=== PATIENT | female | born 1955 | race Caucasian/White ===

== ENCOUNTER 2020-07-20 14:59 | Emergency (ER) | payer MEDICARE ==
[~2020-07-20] VITALS: Ht 157.5 cm; Wt 60.0 kg
--- NOTE | 2020-07-20 16:46 | RAD ---
PA CHEST AND RIGHT RIB SERIES Clinical Indication: Reason: R POSTERIOR RIB PAIN AFTER FALL Comparison: None. Findings: The cardiomediastinal silhouette is normal. Pulmonary vasculature is normal. Thin linear opacities in the right midlung and the bilateral lung bases are probably discoid atelectasis. No pleural effusion or pneumothorax is seen. Cholecystectomy clips. Disc space narrowing and endplate spurring of L3/L4. There is no acute displaced rib fracture. A nondisplaced or subtle rib fracture could be obscured. IMPRESSION: 1. Mild right midlung and bibasilar discoid atelectasis. 2. No acute displaced rib fracture. Electronically signed by: Jamie Alamo MD (07/20/2020 3:42 PM) [id number]
--- NOTE | 2020-07-20 16:46 | RAD ---
Exam: CT head and cervical spine INDICATION: Scalp laceration, neck pain after fall TECHNIQUE: Sequential axial images through the head and cervical spine were obtained without the administration of IV contrast. Comparisons: None FINDINGS: Head: No focal parenchymal lesion or hemorrhage is identified. There is no midline shift or sulcal effacement. Mild patchy hypodensity in the periventricular white matter. No acute vascular territory infarction is identified. Bolanos-white distinction is preserved. The ventricular system is within normal limits without compression hydrocephalus. The basal cisterns are well maintained. There is a extra cranial soft tissue scalp contusion overlying the left occipital region. The visualized portions of the paranasal sinuses and mastoid air cells are well-pneumatized. No acute fractures. Cervical spine: Vertebral body heights and alignment are well-maintained. Fracture to the cervical spine is not identified. No significant spondylotic change in cervical spine. Visualized paraspinal soft tissues are unremarkable. IMPRESSION: 1. Extracranial soft tissue tissue scalp contusion overlying the left occipital region without underlying osseous or intracranial abnormality. 2. Negative CT C-spine for acute traumatic injury. Exposure: One or more of the following in the visualized dose reduction techniques were utilized for this examination: 1. Automated exposure control 2. Adjustment of the MA and/or KV according to patient size Use of iterative of reconstructive technique Electronically signed by: Alexander Tavarez MD (07/20/2020 4:38 PM) [facility]
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
[2020-07-20] MEDS ORDERED: DIAZ5TAB4 PO (18:54)
[2020-07-20] MEDS ORDERED: diazePAM 5 MG TABLET PO ONE (19:00)
[2020-07-20 19:57] VITALS: BP 98/65
== END 2020-07-20 20:09 | disposition home or self-care (01) ==
LOC: ER 14:59
DX: S16.1XXA Strain of muscle, fascia and tendon at neck level, initial encounter (principal); S20.211A Contusion of right front wall of thorax, initial encounter; S00.03XA Contusion of scalp, initial encounter; G89.29 Other chronic pain; G43.909 Migraine, unspecified, not intractable, without status migrainosus; Z88.1 Allergy status to other antibiotic agents; Z88.5 Allergy status to narcotic agent; Z88.8 Allergy status to other drugs, medicaments and biological substances; W10.8XXA Fall (on) (from) other stairs and steps, initial encounter; Y93.89 Activity, other specified; Y92.098 Other place in other non-institutional residence as the place of occurrence of the external cause; Y99.8 Other external cause status
CPT/HCPCS: 70450; 71101; 72125; 99285

== ENCOUNTER 2020-11-26 10:33 | Observation (INO) | payer MEDICARE, MEDICAID ==
[~2020-11-26] VITALS: Ht 157.5 cm; Wt 64.0 kg
[~2020-11-26 10:33] MED LIST: DIAZ5TAB4 PO
[2020-11-26 10:48] VITALS: BP 117/60
[2020-11-26] MEDS: ONDANSETRON PF 4 MG/2 ML VIAL. IVP PRN (13:50)
[2020-11-26] MEDS: fentaNYL PF VIAL 100 MCG/2 ML VIAL IVP PRN ×3 (13:51→19:55)
[2020-11-26] MEDS: IV NORMAL SALINE 1000ML BAG 1,000 ML IV SCH (13:56)
[2020-11-26] MEDS ORDERED: BUTALB/APAP/CAFEIN 50/325/40MG TABLET. PO PRN (14:15)
--- NOTE | 2020-11-26 14:17 | PDOC2 ---
GI CONSULT Date of Service: DATE: 11/26/20 TIME: 14:08 Reason For Consult: abd pain HPI: HPI: 65 y/o female who has seen Dr. Paredes directly admitted this afternoon by Dr. Nichols. We are asked to see re: abd pain. She reports ~6 months of epigastric/upper abd pain most noticeable after eating dinner. Sometimes stabbing, sometimes aching. Helps to take Tums before and after dinner. She has vomiting associated w/ migraines but not with this pain. Feels bloated after eating - "I look like I'm ." Denies reflux/heartburn, dysphagia, hematemesis, diarrhea, constipation, hematochezia, and melena. Has lost 8 pounds. Mentions she likes to walk her dog. Additional h/o frequent falls - recalls episode in 07/2020 when she fell down 14 stairs and was evaluated here for a concussion. She got better but reports worsening of symptoms recently. "I walk like I'm drunk and my speech is slurred." Describes weakness, has to stay upstairs in her room. Neurology asked to see as well; Dr. Carlos is present for part of interview. EGD for epigastric pain on 10/17/20 @ [facility] showed LA Grade A esophagitis, atrophic gastritis, and normal duodenum. At that time. Following this, she reports normal B12 level and also had GES @ [facility]. GES and esophageal biopsy results are unavailable. At one point SBS considered. Colonoscopy for screening on 09/05/20 @ [facility] showed non-bleeding internal hemorrhoids. No biopsies. S/p cholecystectomy in the 1980s for stones. H/o Hep C - seems w/ attempted treatment w/ Dr. Hampton in the past ("chemo") - she stopped due to adverse effects (weight loss, weakness). She describes Hep C "coming out" several times during her lifetime - recently "came out" while she was having GES and "they had to wake me up." Not sure when she has had liver imaging but says Dr. Nichols checks routine labs. No pancreas or PUD history. Chronic pain (neck, migraines) on Percocet and mentions Vistaril works best for nausea when she has it. PMH: PMH: neck pain, migraines, Hep C cholecystectomy, appendectomy, bilateral knee surgeries, sinus surgery, hysterectomy, tonsillectomy, right CTR FH: Family History: CAD, DM Social History: Smoke: <1 pack per day ALCOHOL: none Drugs: None ROS: GEN: Denies fevers, chills, sweats HEENT: Denies blurred vision, sore throat CV: Denies chest pain RESP: Denies shortness of air, cough GI: Per HPI : Denies hematuria, dysuria ENDO: +weight loss NEURO: +slurred speech, unsteadiness MSK: +weakness SKIN: Denies jaundice, pruritus Vitals: Vitals: Vital Signs Date Time Temp Pulse Resp B/P (MAP) Pulse Ox O2 Delivery O2 Flow Rate FiO2 11/26/20 13:51 Room Air Labs: Labs: none for review Allergies: Coded Allergies: erythromycin base (Verified Allergy, Severe, Shortness of Air, 07/20/20) butorphanol (Verified Allergy, Intermediate, Rash, 07/20/20) morphine (Verified Allergy, Intermediate, Rash, 07/20/20) orphenadrine (Verified Allergy, Intermediate, Rash, 07/20/20) Medications: Current Medications Medications (Trade) Dose Ordered Sig/Mack Route PRN Reason Start Time Stop Time Status Last Admin Dose Admin Ondansetron HCl (Zofran) 4 mg PRN Q4HRS PRN IVP NAUSEA/VOMITING 11/26/20 12:15 11/26/20 13:50 Sodium Chloride 1,000 ml @ 75 mls/hr [id number] IV 11/26/20 12:15 11/26/20 13:56 Fentanyl Citrate (Fentanyl 2ml Vial) 25 mcg PRN Q2HR PRN IVP PAIN 11/26/20 13:00 11/26/20 13:51 Imaging: Imaging: no GI imaging for review PE: GEN: NAD HEENT: Atraumatic, PERRL LUNGS: CTAB HEART: RRR ABD: NABS, S/ND, currently non-tender EXTREMITY: No edema SKIN: No rashes, no jaundice NEURO/PSYCH: A & O 3 - she does speak quite slowly, speech is occasionally difficult to understand A/P: A/P: Upper abd pain, bloating - Tums helps Weakness, falls, slurred speech GERD - mild per recent EGD CRC screen - UTD S/p cholecystectomy H/o Hep C Chronic pain, migraines w/ recurrent vomiting -- D/w Dr. Paredes - await labs, add ammonia, observe. Will attempt to review EGD path and GES report. Try PPI, consider abdominal imaging. LELAND BALLESTEROS Nov 26, 2020 14:17
[2020-11-26] MEDS ORDERED: GABA800T5 PO (14:25)
[2020-11-26] MEDS ORDERED: VALIUM10 MG PO (14:25)
[2020-11-26] MEDS ORDERED: BUTA1TAB23 PO (14:25)
[2020-11-26] MEDS ORDERED: HYDR25TA PO (14:25)
[2020-11-26] MEDS ORDERED: OXYC1TAB22 PO (14:25)
[2020-11-26 15:00] VITALS: BP 98/41
[2020-11-26 15:00] LABS: BASO # 0.1 x10^3/uL (0.0-0.2); BASO % 1 % (0-3); EOS # 0.2 x10^3/uL (0.0-0.7); EOS % 2 % (0-3); HEMATOCRIT 39.1 % (36.0-47.0); HEMOGLOBIN 13.3 g/dL (12.0-15.5); LYMPH # 2.1 x10^3/uL (1.0-4.8); LYMPH % 29 % (24-48); MEAN CORPUSCULAR HEMOGLOBIN 32 pg (25-35); MEAN CORPUSCULAR HGB CONC 34 g/dL (31-37); MEAN CORPUSCULAR VOLUME 96 fL (79-100); MONO # 0.5 x10^3/uL (0.0-1.1); MONO % 7 % (0-9); NEUT # 4.5 x10^3/uL (1.8-7.7); NEUT % 60 % (31-73); PLATELET COUNT 358 x10^3/uL (140-400); RED CELL DISTRIBUTION WIDTH 13.1 % (11.5-14.5); WHITE BLOOD COUNT 7.4 x10^3/uL (4.0-11.0)
[2020-11-26] MEDS ORDERED: CALCIUM CARBONATE 500 MG TAB.CHEW PO PRN (15:00)
[2020-11-26 15:35] LABS: ALBUMIN 3.3 g/dL (3.4-5.0); ALBUMIN/GLOBULIN RATIO 0.9 (1.0-1.7); CALCIUM 8.9 mg/dL (8.5-10.1); CREATININE 0.7 mg/dL (0.6-1.0); GFR 84.5; POTASSIUM 3.9 mmol/L (3.5-5.1); TOTAL BILIRUBIN 0.2 mg/dL (0.2-1.0)
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
[2020-11-26] MEDS: PANTOPRAZOLE 40 MG TABLET.DR. PO SCH (16:44)
[2020-11-26] MEDS: GABAPENTIN 400 MG CAPSULE. PO SCH ×2 (16:44→19:54)
[2020-11-26] MEDS: hydrOXYzine 25 MG TABLET PO SCH ×2 (16:44→20:02)
[2020-11-26] MEDS: CITALOPRAM 20 MG TABLET. PO SCH (16:44)
[2020-11-26] MEDS: diazePAM 5 MG TABLET PO SCH ×2 (16:44→19:54)
[2020-11-26 19:00] VITALS: BP 103/43
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
[2020-11-26] MEDS: oxyCODONE/APAP 10/325 1 TAB TABLET PO PRN (22:27)
[2020-11-26 23:00] VITALS: BP 99/50
[2020-11-27] MEDS: fentaNYL PF VIAL 100 MCG/2 ML VIAL IVP PRN ×3 (00:51→06:34)
[2020-11-27 03:00] VITALS: BP 95/39
[2020-11-27 07:00] VITALS: BP 90/45
[2020-11-27 08:32] LABS: BILIRUBIN,URINE NEGATIVE (NEG); CLARITY,URINE CLEAR; COLOR,URINE YELLOW; NITRITE,URINE NEGATIVE (NEG); PH,URINE 5.5 (<5.0-8.0); PROTEIN,URINE NEGATIVE (NEG-TRACE); UROBILINOGEN,URINE 0.2 mg/dL (0.2 mg/dL)
[2020-11-27] MEDS: diazePAM 5 MG TABLET PO SCH ×2 (08:35→12:56)
[2020-11-27] MEDS: CITALOPRAM 20 MG TABLET. PO SCH (08:35)
[2020-11-27] MEDS: GABAPENTIN 400 MG CAPSULE. PO SCH ×2 (08:35→12:56)
[2020-11-27] MEDS: ONDANSETRON PF 4 MG/2 ML VIAL. IVP PRN (08:35)
[2020-11-27] MEDS: PANTOPRAZOLE 40 MG TABLET.DR. PO SCH (08:35)
[2020-11-27] MEDS: IV NORMAL SALINE 1000ML BAG 1,000 ML IV SCH (08:40)
--- NOTE | 2020-11-27 08:48 | PDOC ---
PROGRESS NOTES Date of Service DATE: 11/27/20 TIME: 08:46 Subjective Subjective She feels better. Objective Objective Vital Signs Date Time Temp Pulse Resp B/P (MAP) Pulse Ox O2 Delivery O2 Flow Rate FiO2 11/27/20 07:00 97.9 63 17 90/45 (60) 91 Room Air 97.9 Intake and Output 11/27/20 07:00 Intake Total 470 ml Balance 470 ml Intake Oral 470 ml # Voids 3 # Bowel Movements 1 Physical Exam Physical Exam She is alert,sitting in bed with head end propped up and she had ochoa free and full cervical spine ROM and she is independent with her mobility and self care. Plan Plan of Senior Care with out patient follow up when medically stable. Comment Review of Relevant I have reviewed the following items christiano (where applicable) has been applied. Labs Laboratory Tests Test 11/26/20 14:25 11/26/20 17:55 White Blood Count 7.4 x10^3/uL (4.0-11.0) Red Blood Count 4.10 x10^6/uL (3.50-5.40) Hemoglobin 13.3 g/dL (12.0-15.5) Hematocrit 39.1 % (36.0-47.0) Mean Corpuscular Volume 96 fL (79-100) Mean Corpuscular Hemoglobin 32 pg (25-35) Mean Corpuscular Hemoglobin Concent 34 g/dL (31-37) Red Cell Distribution Width 13.1 % (11.5-14.5) Platelet Count 358 x10^3/uL (140-400) Neutrophils (%) (Auto) 60 % (31-73) Lymphocytes (%) (Auto) 29 % (24-48) Monocytes (%) (Auto) 7 % (0-9) Eosinophils (%) (Auto) 2 % (0-3) Basophils (%) (Auto) 1 % (0-3) Neutrophils # (Auto) 4.5 x10^3/uL (1.8-7.7) Lymphocytes # (Auto) 2.1 x10^3/uL (1.0-4.8) Monocytes # (Auto) 0.5 x10^3/uL (0.0-1.1) Eosinophils # (Auto) 0.2 x10^3/uL (0.0-0.7) Basophils # (Auto) 0.1 x10^3/uL (0.0-0.2) Sodium Level 141 mmol/L (136-145) Potassium Level 3.9 mmol/L (3.5-5.1) Chloride Level 107 mmol/L (98-107) Carbon Dioxide Level 28 mmol/L (21-32) Anion Gap 6 (6-14) Blood Urea Nitrogen 10 mg/dL (7-20) Creatinine 0.7 mg/dL (0.6-1.0) Estimated GFR (Cockcroft-Gault) 84.5 BUN/Creatinine Ratio 14 (6-20) Glucose Level 100 mg/dL (70-99) Calcium Level 8.9 mg/dL (8.5-10.1) Total Bilirubin 0.2 mg/dL (0.2-1.0) Aspartate Amino Transf (AST/SGOT) 16 U/L (15-37) Alanine Aminotransferase (ALT/SGPT) 18 U/L (14-59) Alkaline Phosphatase 77 U/L (46-116) Total Protein 7.0 g/dL (6.4-8.2) Albumin 3.3 g/dL (3.4-5.0) Albumin/Globulin Ratio 0.9 (1.0-1.7) Amylase Level 53 U/L (25-115) Lipase 87 U/L (73-393) Hepatitis C IgG Antibody Reactive (Nonreactive) Ammonia 13 mcmol/L (11-34) Laboratory Tests Test 11/26/20 14:25 11/26/20 17:55 White Blood Count 7.4 x10^3/uL (4.0-11.0) Red Blood Count 4.10 x10^6/uL (3.50-5.40) Hemoglobin 13.3 g/dL (12.0-15.5) Hematocrit 39.1 % (36.0-47.0) Mean Corpuscular Volume 96 fL (79-100) Mean Corpuscular Hemoglobin 32 pg (25-35) Mean Corpuscular Hemoglobin Concent 34 g/dL (31-37) Red Cell Distribution Width 13.1 % (11.5-14.5) Platelet Count 358 x10^3/uL (140-400) Neutrophils (%) (Auto) 60 % (31-73) Lymphocytes (%) (Auto) 29 % (24-48) Monocytes (%) (Auto) 7 % (0-9) Eosinophils (%) (Auto) 2 % (0-3) Basophils (%) (Auto) 1 % (0-3) Neutrophils # (Auto) 4.5 x10^3/uL (1.8-7.7) Lymphocytes # (Auto) 2.1 x10^3/uL (1.0-4.8) Monocytes # (Auto) 0.5 x10^3/uL (0.0-1.1) Eosinophils # (Auto) 0.2 x10^3/uL (0.0-0.7) Basophils # (Auto) 0.1 x10^3/uL (0.0-0.2) Sodium Level 141 mmol/L (136-145) Potassium Level 3.9 mmol/L (3.5-5.1) Chloride Level 107 mmol/L (98-107) Carbon Dioxide Level 28 mmol/L (21-32) Anion Gap 6 (6-14) Blood Urea Nitrogen 10 mg/dL (7-20) Creatinine 0.7 mg/dL (0.6-1.0) Estimated GFR (Cockcroft-Gault) 84.5 BUN/Creatinine Ratio 14 (6-20) Glucose Level 100 mg/dL (70-99) Calcium Level 8.9 mg/dL (8.5-10.1) Total Bilirubin 0.2 mg/dL (0.2-1.0) Aspartate Amino Transf (AST/SGOT) 16 U/L (15-37) Alanine Aminotransferase (ALT/SGPT) 18 U/L (14-59) Alkaline Phosphatase 77 U/L (46-116) Total Protein 7.0 g/dL (6.4-8.2) Albumin 3.3 g/dL (3.4-5.0) Albumin/Globulin Ratio 0.9 (1.0-1.7) Amylase Level 53 U/L (25-115) Lipase 87 U/L (73-393) Hepatitis C IgG Antibody Reactive (Nonreactive) Ammonia 13 mcmol/L (11-34) Medications Current Medications Ondansetron HCl (Zofran) 4 mg PRN Q4HRS PRN IVP NAUSEA/VOMITING Last adminis tered on 11/26/20at 13:50; Start 11/26/20 at 12:15 Sodium Chloride 1,000 ml @ 75 mls/hr [id number] IV Last administered on 11/26/20at 13:56; Start 11/26/20 at 12:15 Fentanyl Citrate (Fentanyl 2ml Vial) 25 mcg PRN Q2HR PRN IVP PAIN Last administered on 11/27/20at 06:34; Start 11/26/20 at 13:00 Acetaminophen/ Butalbital/ Caffeine (Fioricet) 1 tab TID PRN PRN PO HEADACHE; Start 11/26/20 at 14:15 Hydroxyzine HCl (Atarax) 50 mg QID PO Last administered on 11/26/20at 20:02; Start 11/26/20 at 17:00 Oxycodone/ Acetaminophen (Percocet 10/325) 1 tab PRN TID PRN PO PAIN Last administered on 11/26/20at 22:27; Start 11/26/20 at 14:15 Diazepam (Valium) 10 mg QID PO Last administered on 11/26/20at 19:54; Start 11/26/20 at 17:00 Gabapentin (Neurontin) 800 mg QID PO Last administered on 11/26/20at 19:54; Start 11/26/20 at 17:00 Pantoprazole Sodium (Protonix) 40 mg DAILYAC PO Last administered on 11/26/20at 16:44; Start 11/26/20 at 16:30 Calcium Carbonate/ Glycine (Tums) 500 mg PRN AFTMEALHC PRN PO INDIGESTION; Start 11/26/20 at 15:00 Citalopram Hydrobromide (CeleXA) 20 mg DAILY PO Last administered on 11/26/20at 16:44; Start 11/26/20 at 17:00 Active Scripts Active Diazepam 5 Mg Tablet 5 Mg PO TID PRN 3 Days Reported Gabapentin 800 Mg Tablet 800 Mg PO QID [id number] 50-325-40 (Butalb/Acetaminophen/Caffeine) 1 Each Tablet 1 Each PO TID PRN PRN Hydroxyzine Hcl 25 Mg Tablet 50 Mg PO QID Percocet 10-325 Mg Tablet (Oxycodone/Acetaminophen) 1 Each Tablet 1 Tab PO PRN TID PRN MDD 3 Tablet(s) 5 Days Valium (Diazepam) 10 Mg Tablet 10 Mg PO QID Vitals/I & O Vital Sign - Last 24 Hours 11/26/20 11/26/20 11/26/20 11/26/20 10:48 13:51 14:21 15:00 Temp 97.7 97.8 97.7 97.8 Pulse 59 57 Resp 18 18 B/P (MAP) 117/60 (79) 98/41 (60) Pulse Ox 95 91 O2 Delivery Room Air Room Air Room Air Room Air 11/26/20 11/26/20 11/26/20 11/26/20 16:48 17:18 19:00 19:55 Temp 97.6 97.6 Pulse 63 Resp 18 B/P (MAP) 103/43 (63) Pulse Ox 94 91 O2 Delivery Room Air Room Air Room Air 11/26/20 11/26/20 11/26/20 11/26/20 20:25 22:27 23:00 23:27 Pulse 68 Resp 18 B/P (MAP) 99/50 (66) Pulse Ox 91 94 93 93 O2 Delivery Room Air Room Air 11/27/20 11/27/20 11/27/20 11/27/20 00:51 01:21 03:00 03:47 Temp 97.5 97.5 Pulse 71 Resp 18 B/P (MAP) 95/39 (57) Pulse Ox 93 93 100 100 O2 Delivery Room Air 11/27/20 11/27/20 11/27/20 04:17 06:34 07:00 Temp 97.9 97.9 Pulse 63 Resp 17 B/P (MAP) 90/45 (60) Pulse Ox 100 100 91 O2 Delivery Room Air Intake and Output 11/26/20 11/26/20 11/27/20 15:00 23:00 07:00 Intake Total 470 ml Balance 470 ml Justifications for Admission Other Justification EDUARDO NIXON MD Nov 27, 2020 08:48
[2020-11-27] MEDS: oxyCODONE/APAP 10/325 1 TAB TABLET PO PRN (08:49)
[2020-11-27] MEDS: hydrOXYzine 25 MG TABLET PO SCH ×2 (08:51→13:00)
[2020-11-27 09:24] LABS: BACTERIA,URINE 0 /HPF (0-FEW); RBC,URINE 0 /HPF (0-2); WBC,URINE 0 /HPF (0-4)
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
--- NOTE | 2020-11-27 10:21 | PDOC ---
Date of Service: DATE: 11/27/20 TIME: 10:15 Objective: Objective: D/w nurse - no GI concerns, having MRIs, possible DC later. D/w office - normal GES @ [employer]. Vital Signs: Vital Signs Date Time Temp Pulse Resp B/P (MAP) Pulse Ox O2 Delivery O2 Flow Rate FiO2 11/27/20 08:49 Room Air 11/27/20 07:00 97.9 63 17 90/45 (60) 91 97.9 Labs: Laboratory Tests Test 11/26/20 14:25 11/26/20 17:55 11/27/20 07:53 White Blood Count 7.4 x10^3/uL Red Blood Count 4.10 x10^6/uL Hemoglobin 13.3 g/dL Hematocrit 39.1 % Mean Corpuscular Volume 96 fL Mean Corpuscular Hemoglobin 32 pg Mean Corpuscular Hemoglobin Concent 34 g/dL Red Cell Distribution Width 13.1 % Platelet Count 358 x10^3/uL Neutrophils (%) (Auto) 60 % Lymphocytes (%) (Auto) 29 % Monocytes (%) (Auto) 7 % Eosinophils (%) (Auto) 2 % Basophils (%) (Auto) 1 % Neutrophils # (Auto) 4.5 x10^3/uL Lymphocytes # (Auto) 2.1 x10^3/uL Monocytes # (Auto) 0.5 x10^3/uL Eosinophils # (Auto) 0.2 x10^3/uL Basophils # (Auto) 0.1 x10^3/uL Sodium Level 141 mmol/L Potassium Level 3.9 mmol/L Chloride Level 107 mmol/L Carbon Dioxide Level 28 mmol/L Anion Gap 6 Blood Urea Nitrogen 10 mg/dL Creatinine 0.7 mg/dL Estimated GFR (Cockcroft-Gault) 84.5 BUN/Creatinine Ratio 14 Glucose Level 100 mg/dL Calcium Level 8.9 mg/dL Total Bilirubin 0.2 mg/dL Aspartate Amino Transf (AST/SGOT) 16 U/L Alanine Aminotransferase (ALT/SGPT) 18 U/L Alkaline Phosphatase 77 U/L Total Protein 7.0 g/dL Albumin 3.3 g/dL Albumin/Globulin Ratio 0.9 Amylase Level 53 U/L Lipase 87 U/L Hepatitis C IgG Antibody Reactive Ammonia 13 mcmol/L Urine Collection Type Unknown Urine Color Yellow Urine Clarity Clear Urine pH 5.5 Urine Specific [place] 1.025 Urine Protein Negative mg/dL Urine Glucose (UA) >=1000 mg/dL Urine Ketones (Stick) Negative mg/dL Urine Blood Negative Urine Nitrite Negative Urine Bilirubin Negative Urine Urobilinogen Dipstick 0.2 mg/dL Urine Leukocyte Esterase Negative Urine RBC 0 /HPF Urine WBC 0 /HPF Urine Squamous Epithelial Cells Few /LPF Urine Bacteria 0 /HPF Urine Mucus Slight /LPF PE: out of room A/P: Upper abd pain, bloating, h/o GERD Hep C Ab + Chronic pain, migraines w/ recurrent vomiting, weakness/falls, slurred speech -- Out of room. Will review any additional GI recs w/ Dr. Paredes. Would continue PPI. Justicifation of Admission Dx: Justifications for Admission: Justification of Admission Dx: Yes LELAND BALLESTEROS Nov 27, 2020 10:21
--- NOTE | 2020-11-27 11:55 | PDOC ---
PROGRESS NOTES Date of Service DATE: 11/27/20 TIME: 11:52 Assessment Chronic migraine headache, apparently posttraumatic Frequent falls Cognitive complaints On combination of benzodiazepines and narcotics, which could exacerbate all of these including causing medication overuse headache. Chronic abdominal pain, work-up has been negative, I wonder about irritable bowel syndrome Chronic aches and pain, also evokes the possibility of fibromyalgia, especially with all the tender points. Plan MRI of the brain, cervical, thoracic, and lumbar spine Rehabilitation modalities, will need outpatient physical therapy Citalopram GI work-up At some point, it may be helpful to try to wean the patient off narcotics and benzodiazepines, but that would be very difficult. Patient believes she is going home today after the MRI studies, that is okay with me She can follow-up with me in 2 months. I told her to investigate Botox at [facility] Message [employer] Subjective Feels better, wants to go home Objective Vital Signs Date Time Temp Pulse Resp B/P (MAP) Pulse Ox O2 Delivery O2 Flow Rate FiO2 11/27/20 08:49 Room Air 11/27/20 07:00 97.9 63 17 90/45 (60) 91 97.9 Intake and Output 11/27/20 07:00 Intake Total 470 ml Balance 470 ml Intake Oral 470 ml # Voids 3 # Bowel Movements 1 PHYSICAL EXAM Alert. Oriented to time, place and person. No psychomotor slowing today PERRL. EOMI. CN: no focal findings. Muscle tone: normal. Muscle strength: 5/5 DTR: 2+ Plantar reflex: Flexor Gait: not examined in bed. Sensory exam: no abnormal findings. No cerebellar signs elicited. Review of Relevant I have reviewed the following items christiano (where applicable) has been applied. Labs Laboratory Tests Test 11/26/20 14:25 11/26/20 17:55 11/27/20 07:53 White Blood Count 7.4 x10^3/uL (4.0-11.0) Red Blood Count 4.10 x10^6/uL (3.50-5.40) Hemoglobin 13.3 g/dL (12.0-15.5) Hematocrit 39.1 % (36.0-47.0) Mean Corpuscular Volume 96 fL (79-100) Mean Corpuscular Hemoglobin 32 pg (25-35) Mean Corpuscular Hemoglobin Concent 34 g/dL (31-37) Red Cell Distribution Width 13.1 % (11.5-14.5) Platelet Count 358 x10^3/uL (140-400) Neutrophils (%) (Auto) 60 % (31-73) Lymphocytes (%) (Auto) 29 % (24-48) Monocytes (%) (Auto) 7 % (0-9) Eosinophils (%) (Auto) 2 % (0-3) Basophils (%) (Auto) 1 % (0-3) Neutrophils # (Auto) 4.5 x10^3/uL (1.8-7.7) Lymphocytes # (Auto) 2.1 x10^3/uL (1.0-4.8) Monocytes # (Auto) 0.5 x10^3/uL (0.0-1.1) Eosinophils # (Auto) 0.2 x10^3/uL (0.0-0.7) Basophils # (Auto) 0.1 x10^3/uL (0.0-0.2) Sodium Level 141 mmol/L (136-145) Potassium Level 3.9 mmol/L (3.5-5.1) Chloride Level 107 mmol/L (98-107) Carbon Dioxide Level 28 mmol/L (21-32) Anion Gap 6 (6-14) Blood Urea Nitrogen 10 mg/dL (7-20) Creatinine 0.7 mg/dL (0.6-1.0) Estimated GFR (Cockcroft-Gault) 84.5 BUN/Creatinine Ratio 14 (6-20) Glucose Level 100 mg/dL (70-99) Calcium Level 8.9 mg/dL (8.5-10.1) Total Bilirubin 0.2 mg/dL (0.2-1.0) Aspartate Amino Transf (AST/SGOT) 16 U/L (15-37) Alanine Aminotransferase (ALT/SGPT) 18 U/L (14-59) Alkaline Phosphatase 77 U/L (46-116) Total Protein 7.0 g/dL (6.4-8.2) Albumin 3.3 g/dL (3.4-5.0) Albumin/Globulin Ratio 0.9 (1.0-1.7) Amylase Level 53 U/L (25-115) Lipase 87 U/L (73-393) Hepatitis C IgG Antibody Reactive (Nonreactive) Ammonia 13 mcmol/L (11-34) Urine Collection Type Unknown Urine Color Yellow Urine Clarity Clear Urine pH 5.5 (<5.0-8.0) Urine Specific [place] 1.025 (1.000-1.030) Urine Protein Negative mg/dL (NEG-TRACE) Urine Glucose (UA) >=1000 mg/dL (NEG) Urine Ketones (Stick) Negative mg/dL (NEG) Urine Blood Negative (NEG) Urine Nitrite Negative (NEG) Urine Bilirubin Negative (NEG) Urine Urobilinogen Dipstick 0.2 mg/dL (0.2 mg/dL) Urine Leukocyte Esterase Negative (NEG) Urine RBC 0 /HPF (0-2) Urine WBC 0 /HPF (0-4) Urine Squamous Epithelial Cells Few /LPF Urine Bacteria 0 /HPF (0-FEW) Urine Mucus Slight /LPF Laboratory Tests Test 11/26/20 14:25 11/26/20 17:55 11/27/20 07:53 White Blood Count 7.4 x10^3/uL (4.0-11.0) Red Blood Count 4.10 x10^6/uL (3.50-5.40) Hemoglobin 13.3 g/dL (12.0-15.5) Hematocrit 39.1 % (36.0-47.0) Mean Corpuscular Volume 96 fL (79-100) Mean Corpuscular Hemoglobin 32 pg (25-35) Mean Corpuscular Hemoglobin Concent 34 g/dL (31-37) Red Cell Distribution Width 13.1 % (11.5-14.5) Platelet Count 358 x10^3/uL (140-400) Neutrophils (%) (Auto) 60 % (31-73) Lymphocytes (%) (Auto) 29 % (24-48) Monocytes (%) (Auto) 7 % (0-9) Eosinophils (%) (Auto) 2 % (0-3) Basophils (%) (Auto) 1 % (0-3) Neutrophils # (Auto) 4.5 x10^3/uL (1.8-7.7) Lymphocytes # (Auto) 2.1 x10^3/uL (1.0-4.8) Monocytes # (Auto) 0.5 x10^3/uL (0.0-1.1) Eosinophils # (Auto) 0.2 x10^3/uL (0.0-0.7) Basophils # (Auto) 0.1 x10^3/uL (0.0-0.2) Sodium Level 141 mmol/L (136-145) Potassium Level 3.9 mmol/L (3.5-5.1) Chloride Level 107 mmol/L (98-107) Carbon Dioxide Level 28 mmol/L (21-32) Anion Gap 6 (6-14) Blood Urea Nitrogen 10 mg/dL (7-20) Creatinine 0.7 mg/dL (0.6-1.0) Estimated GFR (Cockcroft-Gault) 84.5 BUN/Creatinine Ratio 14 (6-20) Glucose Level 100 mg/dL (70-99) Calcium Level 8.9 mg/dL (8.5-10.1) Total Bilirubin 0.2 mg/dL (0.2-1.0) Aspartate Amino Transf (AST/SGOT) 16 U/L (15-37) Alanine Aminotransferase (ALT/SGPT) 18 U/L (14-59) Alkaline Phosphatase 77 U/L (46-116) Total Protein 7.0 g/dL (6.4-8.2) Albumin 3.3 g/dL (3.4-5.0) Albumin/Globulin Ratio 0.9 (1.0-1.7) Amylase Level 53 U/L (25-115) Lipase 87 U/L (73-393) Hepatitis C IgG Antibody Reactive (Nonreactive) Ammonia 13 mcmol/L (11-34) Urine Collection Type Unknown Urine Color Yellow Urine Clarity Clear Urine pH 5.5 (<5.0-8.0) Urine Specific [place] 1.025 (1.000-1.030) Urine Protein Negative mg/dL (NEG-TRACE) Urine Glucose (UA) >=1000 mg/dL (NEG) Urine Ketones (Stick) Negative mg/dL (NEG) Urine Blood Negative (NEG) Urine Nitrite Negative (NEG) Urine Bilirubin Negative (NEG) Urine Urobilinogen Dipstick 0.2 mg/dL (0.2 mg/dL) Urine Leukocyte Esterase Negative (NEG) Urine RBC 0 /HPF (0-2) Urine WBC 0 /HPF (0-4) Urine Squamous Epithelial Cells Few /LPF Urine Bacteria 0 /HPF (0-FEW) Urine Mucus Slight /LPF Medications Current Medications Ondansetron HCl (Zofran) 4 mg PRN Q4HRS PRN IVP NAUSEA/VOMITING Last administered on 11/27/20 08:35; Start 11/26/20 at 12:15 Sodium Chloride 1,000 ml @ 75 mls/hr [id number] IV Last administered on 11/27/20 08:40; Start 11/26/20 at 12:15 Fentanyl Citrate (Fentanyl 2ml Vial) 25 mcg PRN Q2HR PRN IVP PAIN Last administered on 11/27/20 06:34; Start 11/26/20 at 13:00 Acetaminophen/ Butalbital/ Caffeine (Fioricet) 1 tab TID PRN PRN PO HEADACHE; Start 11/26/20 at 14:15 Hydroxyzine HCl (Atarax) 50 mg QID PO Last administered on 11/26/20 20:02; Start 11/26/20 at 17:00 Oxycodone/ Acetaminophen (Percocet 10/325) 1 tab PRN TID PRN PO PAIN Last administered on 11/27/20at 08:49; Start 11/26/20 at 14:15 Diazepam (Valium) 10 mg QID PO Last administered on 11/27/20 08:35; Start 11/26/20 at 17:00 Gabapentin (Neurontin) 800 mg QID PO Last administered on 11/27/20 08:35; Start 11/26/20 at 17:00 Pantoprazole Sodium (Protonix) 40 mg DAILYAC PO Last administered on 11/27/20 08:35; Start 11/26/20 at 16:30 Calcium Carbonate/ Glycine (Tums) 500 mg PRN AFTMEALHC PRN PO INDIGESTION; Start 11/26/20 at 15:00 Citalopram Hydrobromide (CeleXA) 20 mg DAILY PO Last administered on 11/27/20 08:35; Start 11/26/20 at 17:00 Active Scripts Active Diazepam 5 Mg Tablet 5 Mg PO TID PRN 3 Days Reported Gabapentin 800 Mg Tablet 800 Mg PO QID [id number] 50-325-40 (Butalb/Acetaminophen/Caffeine) 1 Each Tablet 1 Each PO TID PRN PRN Hydroxyzine Hcl 25 Mg Tablet 50 Mg PO QID Percocet 10-325 Mg Tablet (Oxycodone/Acetaminophen) 1 Each Tablet 1 Tab PO PRN TID PRN MDD 3 Tablet(s) 5 Days Valium (Diazepam) 10 Mg Tablet 10 Mg PO QID Vitals/I & O Vital Sign - Last 24 Hours 11/26/20 11/26/20 11/26/20 11/26/20 13:51 14:21 15:00 16:48 Temp 97.8 97.8 Pulse 57 Resp 18 B/P (MAP) 98/41 (60) Pulse Ox 91 O2 Delivery Room Air Room Air Room Air Room Air 11/26/20 11/26/20 11/26/20 11/26/20 17:18 19:00 19:55 20:25 Temp 97.6 97.6 Pulse 63 Resp 18 B/P (MAP) 103/43 (63) Pulse Ox 94 91 91 O2 Delivery Room Air Room Air 11/26/20 11/26/20 11/26/20 11/27/20 22:27 23:00 23:27 00:51 Pulse 68 Resp 18 B/P (MAP) 99/50 (66) Pulse Ox 94 93 93 93 O2 Delivery Room Air Room Air 11/27/20 11/27/20 11/27/20 11/27/20 01:21 03:00 03:47 04:17 Temp 97.5 97.5 Pulse 71 Resp 18 B/P (MAP) 95/39 (57) Pulse Ox 93 100 100 100 O2 Delivery Room Air 11/27/20 11/27/20 11/27/20 11/27/20 06:34 07:00 07:05 08:00 Temp 97.9 97.9 Pulse 63 Resp 17 B/P (MAP) 90/45 (60) Pulse Ox 100 91 O2 Delivery Room Air Room Air Room Air 11/27/20 08:49 O2 Delivery Room Air Intake and Output 11/26/20 11/26/20 11/27/20 15:00 23:00 07:00 Intake Total 470 ml Balance 470 ml Justicifation of Admission Dx: Justifications for Admission: Justification of Admission Dx: Yes MINA PEREZ MD Nov 27, 2020 11:55
--- NOTE | 2020-11-27 12:22 | RAD ---
MRI BRAIN WO History:Reason: headaches, memory loss, falls, whole-spine pain, may do 11/27. Instructions: / History: Technique: Multiplanar, multi sequential MR imaging was performed of the brain without contrast. Comparison: CT August 10, 2012 Findings: No acute infarct. No intracranial hemorrhage. No mass effect. No hydrocephalus. Mild brain parenchymal volume loss. Imaged orbits are unremarkable. Imaged paranasal sinuses and mastoid air cells are clear. Impression: 1. No acute intracranial abnormality. Electronically signed by: Ellis Clemons DO (11/27/2020 12:19 PM) [id number]
--- NOTE | 2020-11-27 12:29 | RAD ---
MR CERVICAL SPINE WO History:Reason: headaches, memory loss, falls, whole-spine pain Technique: Multiplanar, multi sequential noncontrast MR imaging was performed of the cervical spine. Comparison: CT August 10, 2012 Findings: Normal vertebral body height and alignment. No fracture.. Mild endplate edema C3-C4 No pathologic signal abnormality within the cervical spinal cord. C2-C3: No canal or neuroforaminal narrowing. C3-C4: Tiny central disc protrusion. Minimal cord flattening. No canal narrowing. Facet arthropathy. Mild left neuroforaminal narrowing. C4-C5: Small disc extrusion extending slightly inferiorly. Mild cord flattening. No canal narrowing. No neuroforaminal narrowing. C5-C6: No canal narrowing. No neuroforaminal narrowing. C6-C7: No canal narrowing. Facet arthropathy greatest on the left. Mild left neuroforaminal narrowi ng. C7-T1: No canal narrowing. Facet arthropathy. Minimal left neuroforaminal narrowing. Right thyroid nodule measures 1.8 x 1.3 cm. Impression: 1. Multilevel cervical spondylosis most prominent C3-C4 and C4-C5 with mild cord flattening. 2. Mild neuroforaminal narrowing. 3. Right thyroid nodule. Ultrasound can further evaluate. Electronically signed by: Ellis Clemons DO (11/27/2020 12:26 PM) [id number]
--- NOTE | 2020-11-27 12:40 | RAD ---
MR LUMBAR SPINE WO -[id number], MRI THORACIC SPINE WO History: Reason: headaches, memory loss, falls, whole-spine pain, may do 11/27. Instructions: / History: Technique: Multiplanar, multi sequential MR imaging was performed of the thoracic and lumbar spine. Comparison: None Findings: Thoracic spine MRI: Normal vertebral body height and alignment. No fracture. T7 vertebral body hemangioma. No pathologic signal abnormality within the thoracic spinal cord. Minimal degenerative disc changes with slight disc bulges/protrusions. No significant canal narrowing . No neuroforaminal narrowing. Lumbar spine: Mild retrolisthesis L3 on L4. Slight grade 1 anterolisthesis L4 on L5. Mild rightward curvature. Dege nerative endplate edema L3-L4. Small left renal cyst. Conus terminates at the normal location. No evidence of nerve root clumping. L1-L2: Small disc bulge. No canal narrowing. Slight right foraminal disc protrusion. Minimal right n euroforaminal narrowing. No left neuroforaminal narrowing. L2-L3: Disc bulge. Mild facet arthropathy. No canal narrowing. Mild subarticular recess narrowing. B ilateral foraminal disc protrusions. Mild bilateral neuroforaminal narrowing. L3-L4: Broad-based disc bulge. Moderate canal narrowing. Advanced facet arthropathy. Retrolisthesis. Left foraminal disc protrusion. Severe left neuroforaminal narrowing. Mild right neuroforaminal narr owing. L4-L5: Broad-based disc bulge. Anterolisthesis. Slight disc extrusion extending superiorly. Advanced facet arthropathy. Facet joint effusions, right greater than left. Moderate canal narrowing. Severe right subarticular recess narrowing. Impingement of the descending right L5 nerve root. Severe right neuroforaminal narrowing with impingement of the exiting right L4 nerve root. L5-S1: Small disc bulge. Moderate right facet arthropathy. No canal narrowing. Mild right neuroforam inal narrowing. Impression: 1. Moderate multilevel lumbar spondylosis most prominent L3-L4 and L4-L5. 2. L4-5 moderate canal narrowing with severe right subarticular recess narrowing and impingement of the descending right L5 nerve root. Correlate for radiculopathy. 3. Moderate L3-L4 canal narrowing. 4. Multilevel neuroforaminal narrowing most prominent left L3-L4 and right L4-5. Electronically signed by: Ellis Clemons DO (11/27/2020 12:38 PM) [id number]
--- NOTE | 2020-11-27 15:53 | NUR ---
MRI REVIEWED BY DR. PEREZ. RECEIVED OK TO DISCHARGE. ORDERS PLACED. IV REMOVED. DISCHARGE INSTRUCTIONS DISCUSSED. PT VERBALIZED UNDERSTANDING. PT AMBULATED TO MAIN ENTRANCE AND WAS SECURED IN CAR WITH DAD.
[2020-11-28 13:15] LABS: HCV ULTRA QUANT PCR 116000 IU/mL (.)
--- NOTE | 2020-11-29 02:48 | DS ---
DATE OF DISCHARGE: 11/27/2020 PRIMARY DIAGNOSES: 1. ____ obtundation with multiple falls. 2. Severe headache and neck pain with underlying history of chronic migraine. 3. Cervical spinal stenosis on imaging, which discharges my best guess for why things have changed. CHIEF COMPLAINT AND HISTORY OF PRESENT ILLNESS: This 65-year-old white female admitted from the office with ____ with multiple falls. Her father brought her to the office. She was unable to relate to me a good history, which is out of character for her and he was very concerned, stating there is no way she could even think of staying at home by herself currently if he had to leave the house and even go to the store. He normally has worked over the years and has gone from the house for majority of the time. She had had two Emergency Room visits over the last week with no imaging done, but given nausea and pain medicines at home. She thus was admitted. SUMMARY OF STAY: The patient was admitted and treated with muscle relaxers, IV fentanyl, and multiple consults. She had ongoing abdominal pain and today she has minimal workup for the same with GI and asked them to come by. Their recommendations were medical therapy with acid suppression with no definite obvious etiology. Rehab namely, Dr. Kimball, who felt she could do outpatient followup as she was at least minimally better by the following day. Neurology saw her and ordered multiple MRIs, which the major finding being that of cervical spinal stenosis and felt she could do outpatient possible epidural steroid injection as she was judged by therapy to be safe ambulatory carias to go home on the day of discharge and thus was accomplished. DISPOSITION: The patient is discharged to home. DIET: She is discharged on regular diet. ACTIVITY: As tolerated. FOLLOWUP: Office in 1 week. DISCHARGE MEDICATIONS: Listed on the med rec and have been addressed. BRET DENNY MD DR: DIXON/mariluz JOB#: [id number] / [id number]
== END 2020-11-27 15:54 | disposition home or self-care (01) ==
LOC: 4 NORTH 10:33 → INTOOBSV 10:33
PROVIDERS: ADMIT Family Medicine; ATTEND Family Medicine
DX: R40.0 Somnolence (principal); G43.909 Migraine, unspecified, not intractable, without status migrainosus; M54.2 Cervicalgia; K21.9 Gastro-esophageal reflux disease without esophagitis; R47.81 Slurred speech; B15.9 Hepatitis A without hepatic coma; M48.02 Spinal stenosis, cervical region; B19.20 Unspecified viral hepatitis C without hepatic coma; E04.1 Nontoxic single thyroid nodule; F17.210 Nicotine dependence, cigarettes, uncomplicated; G44.40 Drug-induced headache, not elsewhere classified, not intractable; G62.9 Polyneuropathy, unspecified; R29.6 Repeated falls; Z91.81 History of falling; Z86.19 Personal history of other infectious and parasitic diseases; Z90.49 Acquired absence of other specified parts of digestive tract; Z90.710 Acquired absence of both cervix and uterus; Z98.890 Other specified postprocedural states; Z92.21 Personal history of antineoplastic chemotherapy
CPT/HCPCS: 36415; 70551; 72141; 72146; 72148; 80053; 81001; 82140; 82150; 83690; 85025; 86803; 87522; 96361; 96374; 96375; 96376; 97161; 97165; G0378; G0379; J2405; J3010; J7030

== ENCOUNTER 2020-12-24 01:01 | Emergency (ER) | payer MEDICARE, MEDICAID ==
[~2020-12-24] VITALS: Ht 167.6 cm; Wt 59.1 kg
[~2020-12-24 01:01] MED LIST changes: +BUTA1TAB23 PO; +GABA800T5 PO; +HYDR25TA PO; +OXYC1TAB22 PO; +VALIUM10 MG PO
--- NOTE | 2020-12-24 01:19 | EKG ---
[facility] [address] [place] [address] Test Date: 2020-12-24 Test Time: 01:12:04 Pat Name: JOVANY SMILEY Department: Room: Gender: F Geospatial Analyst: : 1955 Requested By: TIM MCKEON Order Number: [id number] Reading MD: Measurements Intervals Robinson Rate: 65 P: 41 DC: 162 QRS: 81 QRSD: 78 T: 56 QT: 428 QTc: 446 Interpretive Statements SINUS RHYTHM NO SPECIFIC ECG ABNORMALITIES RI6.02 No previous ECG available for comparison
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
[2020-12-24] MEDS ORDERED: oxyCODONE/APAP 10/325 1 TAB TABLET PO ONE (02:00)
--- NOTE | 2020-12-24 02:12 | RAD ---
EXAM: 1. CT HEAD WITHOUT CONTRAST. 2. CT CERVICAL SPINE WITHOUT CONTRAST. HISTORY: Pain, fall. TECHNIQUE: Computed tomography of the head and cervical spine was performed without intravenous contr ast. One or more of the following individualized dose reduction techniques were utilized for this exa mination: 1. Automated exposure control. 2. Adjustment of the mA and/or kV according to patient size. 3. Use of iterative reconstruction technique. COMPARISON: 07/20/2020. FINDINGS: There is no intracranial hemorrhage. Bolanos-white differentiation is preserved. The ventricl es are normal in size and position. The visualized paranasal sinuses appear clear. The orbits are unremarkable. The temporal bones are un remarkable. The calvarium reveals no suspicious lesions. Alignment is maintained. There is mild osteoarthritis at C1/2. No fractures are identified. Degenerat coco disc disease is mild from C3 through C5. There is no prevertebral soft tissue swelling. There is no clear central canal stenosis or neural foraminal stenosis. Images of the upper abdomen reveal mild to moderate centrilobular emphysema. IMPRESSION: 1. No acute intracranial findings. 2. No cervical fracture or acute malalignment. Mild degenerative changes as above. Electronically signed by: Negra Cabello MD (12/24/2020 2:10 AM) [facility]
[2020-12-24] MEDS ORDERED: ONDANSETRON ODT 4 MG TAB.RAPDIS. PO ONE (02:30)
[2020-12-24 02:35] VITALS: BP 119/59
== END 2020-12-24 02:40 | disposition home or self-care (01) ==
LOC: ER 01:01
DX: S00.93XA Contusion of unspecified part of head, initial encounter (principal); G89.29 Other chronic pain; G43.909 Migraine, unspecified, not intractable, without status migrainosus; F17.200 Nicotine dependence, unspecified, uncomplicated; W18.09XA Striking against other object with subsequent fall, initial encounter; Y93.89 Activity, other specified; Y92.89 Other specified places as the place of occurrence of the external cause; Y99.8 Other external cause status
CPT/HCPCS: 70450; 72125; 93005; 99285-25